=== PATIENT | male | born 1965 | race Caucasian/White ===

== ENCOUNTER 2017-03-16 18:33 | Emergency (ER) | payer BC ==
[~2017-03-16] VITALS: Ht 182.9 cm; Wt 99.8 kg
--- NOTE | 2017-03-16 19:44 | NUR ---
pt to room. Pt c/o intermittent left calf pain for approx 3 wks. Pt sts he flies a lot from the [facility] to [place]. Last flight approx 2 wks ago. Pt denies shortness of breath. No swelling or color change noted to LLE. Pos CMS. Pt resting in position of comfort for self, awaiting further eval.
--- NOTE | 2017-03-16 21:55 | NUR ---
Bedside u/s completed. Pt stable for discharge per MD. Pt given ACI. Pt verbalized understanding of dc instructions. Pt ambulated out of er with steady gait.
[2017-03-16 21:56] VITALS: BP 150/78; PULSE 88; RESP 18; O2SAT 99
== END 2017-03-16 21:58 | disposition home or self-care (01) ==
LOC: ER 18:33
DX: M79.605 Pain in left leg (principal); M79.604 Pain in right leg
CPT/HCPCS: 93970; 99284; A4663